=== PATIENT | male | born 1970 | race Caucasian/White ===

== ENCOUNTER 2019-12-18 09:27 | Emergency (ER) | payer OTHER ==
[2019-12-18] MEDS ORDERED: LIDOCAINE 1% W/ EPINEPHRINE 20 ML VIAL INJ ONE (09:39)
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
--- NOTE | 2019-12-18 10:01 | RAD ---
EXAM: Fingers,Right CLINICAL INDICATION: Right little finger pain, possible foreign body COMPARISON: There is no previous study for comparison. FINDINGS: 3 views of the right little finger reveal no evidence of any fracture. The osseous structures appear intact and unremarkable. There are no radiopaque foreign bodies. IMPRESSION: Negative right little finger radiographs. Electronically signed by: Brenton Hancock MD 12/18/2019 9:59 AM CDT
[2019-12-18] MEDS: TETANUS,DIPHTHERIA,PERTUSSIS 1 EA SYG IM ONE (10:03)
[2019-12-18] MEDS ORDERED: IBUPROFEN 200 MG TAB ONE (10:08)
[2019-12-18] MEDS: HYDROcodone 5MG/APAP 325MG 1 EA TAB PO ONE (10:09)
[2019-12-18] MEDS: IBUPROFEN 200 MG TAB PO ONE (10:10)
[2019-12-18] MEDS: LIDOCAINE 1% W/ EPINEPHRINE 20 ML VIAL INJ ONE (10:53)
[2019-12-18] MEDS: NEOMYCIN-BACITRACIN-POLYMYXIN 0.9 GM UD TOP ONE (10:55)
[2019-12-18 11:26] VITALS: BP 131/97; TEMP 96.3; O2SAT 98
== END 2019-12-18 11:18 | disposition home or self-care (01) ==
LOC: ER 09:27
DX: S61.216A Laceration without foreign body of right little finger without damage to nail, initial encounter (principal); V18.2XXA Unspecified pedal cyclist injured in noncollision transport accident in nontraffic accident, initial encounter; Y92.9 Unspecified place or not applicable